=== PATIENT | female | born 1970 | race Caucasian/White ===

== ENCOUNTER 2024-02-21 07:19 | Outpatient (OUT) | payer BC, OTHER, SELFPAY ==
--- NOTE | 2024-02-21 | CONS_ITS ---
CONSULTATION DATE: 02/21/2024 TO: Ninoska Hugo, [employer]INE OPERATOR-C CHIEF COMPLAINT: Includes right knee pain, right leg pain. HISTORY OF PRESENT ILLNESS: Review of systems, past medical/surgical history were obtained and documented on the health questionnaire and is available upon request. She is a 53-year-old female, reports having pain for many years. She has been to various pain clinics in the past and has been treated with various types of procedure, and patient reports she has had significant reactions to steroids prompting ER visits, complicated by hypertension. She has been trialed on various mediations, all with varying degrees of relief. She has undergone a left total knee arthroplasty in the past. She reports this did improve her left knee pain and left leg pain at that time, but since her left arthroplasty, she has been having progressive pain on the right side. Overall, she rates the pain as being 5-7/10 pain, fairly constant with a sharp, shooting component, increased with activities such as weight bearing maneuvers. She feels most comfortable in the semi-recumbent position. She denied any change in bowel and bladder habits or new sensory motor change in the lower extremities. Her MEKA on today?s visit is 68% CURRENT MEDICATION: Includes Robaxin, Flexeril, Tylenol, Aleve and gabapentin. EXAM: Her examination is notable for patient having no clinical radiculopathy or myelopathy involving the lower extremities. She did have significant crepitus involving the right knee joint, with a moderate amount of edema. She had significant soft tissue tenderness, as well as spasm of the hamstring muscles, especially in the lateral aspect. She had no signs consistent with ligamental laxity. She had no appreciable J-sign. She has significant myofascial tenderness and tightness of the right IT band and a moderate amount of pain with right hip flexion, with pain with right psoas stretch. IMPRESSION: Our impression is patient with chronic pain secondary to fibromyalgia, right knee degenerative joint disease, right IT band dysfunction with myalgia. RECOMMENDATIONS: I have recommended she consider aquatic therapy, discontinue Robaxin and Flexeril. Will trial her on tizanidine 4 mg pills, 1-2 up to b.i.d. as tolerated. Apply a topical compounded preparation consisting of amantadine, baclofen, diclofenac, orphenadrine and bupivacaine. In the future, may consider transitioning to Zonegran from Neurontin; however, at this point, we will wait until she is evaluated for possible right knee arthroplasty in the near future. Will see the patient back in the office in approximately four weeks? time or sooner if needed. As part of providing excellent, safe, comprehensive care, the following was completed at our patient's visit: 1. A medication reconciliation and review to ensure accurate knowledge of current/active medications, including asking our patients to inform us about any [id number] medications or herbal remedies/nutritional supplements/alternative remedies. 2. A review to specifically ensure our patients have had annual screening for: elevated body mass index (BMI, see intake chart for exact total), tobacco use, screening for depression, and screening for unhealthy alcohol use. When screening is concerning, patients are provided with education and the specific recommendation to discuss the concerning health issue and treatment options with their primary care provider. ARETHA
== END 2024-02-21 07:20 | disposition home or self-care (01) ==
LOC: PM 07:19
PROVIDERS: Family Provider Orthopaedic Surgery; PCP Nurse Practitioner Family; Visit Provider Nurse Practitioner
DX: M25.561 Pain in right knee (principal); M79.7 Fibromyalgia; M17.11 Unilateral primary osteoarthritis, right knee
CPT/HCPCS: G0463